=== PATIENT | female | born 1940 | race Caucasian/White ===

== ENCOUNTER 2025-02-11 11:14 | Day surgery (SDC) | payer OTHER ==
[2025-02-07 12:00] LABS: BASOPHILS % (AUTO) 0.3 % (0-1); EOSINOPHILS % (AUTO) 0.4 % (0-6); HEMATOCRIT 34.7 % (35.0-45.0); HEMOGLOBIN 11.5 g/dl (12.0-16.0); LYMPHOCYTES # (AUTO) 1.9 X10'3 (1.1-4.8); MEAN CORPUSCULAR HEMOGLOBIN 30.4 PG (27.0-31.0); MEAN CORPUSCULAR VOLUME 92.1 FL (78-98); MEAN PLATELET VOLUME 8.9 FL (7.4-10.4); MONOCYTES # (AUTO) 0.5 X10'3 (0-0.9); NEUTROPHILS # (AUTO) 8.8 X10'3 (1.8-7.7); NEUTROPHILS % (AUTO) 78.3 % (42-75); PLATELET COUNT 237 X10'3 (140-440); RED BLOOD COUNT 3.77 X10'6 (4.20-5.60); RED CELL DISTRIBUTION WIDTH 15.6 % (11.5-14.5); WHITE BLOOD COUNT 11.3 X10'3 (4.5-11.0)
[2025-02-07 12:13] LABS: APTT 28 SECONDS (22-32); PROTHROMBIN TIME 10.6 SECONDS (9.0-12.0)
[2025-02-07 12:14] LABS: ALBUMIN 3.7 G/DL (3.4-5.0); ANION GAP 8 (8-16); BLOOD UREA NITROGEN 29 MG/DL (7-18); BUN/CREATININE RATIO 33.7 (10.0-20.0); CALCIUM 9.1 MG/DL (8.5-10.1); CHLORIDE 104 MMOL/L (99-107); CHOL/HDL RATIO 1.9 (0.00-4.99); CHOLESTEROL 166 MG/DL (0-200); CREATININE 0.86 MG/DL (0.40-0.90); GLUCOSE 108 MG/DL (70-104); HDL CHOLESTEROL 86 MG/DL (35-60); LDL CHOLESTEROL 65 MG/DL (50-100); POTASSIUM 3.5 MMOL/L (3.5-5.1); SODIUM 141 MMOL/L (135-145); TOTAL CARBON DIOXIDE 29.1 MMOL/L (24-32); TRIGLYCERIDES 102 MG/DL (20-135); eGFR 63 ML/MIN
[2025-02-11] VITALS (8 sets, daily range): BP systolic 121–159; BP diastolic 51–91; PULSE 57–86; RESP 16; TEMP 97.5; O2SAT 92–97
[~2025-02-11] VITALS: Ht 162.6 cm; Wt 61.2 kg
[2025-02-11] MEDS ORDERED: LEVO100T9 PO (11:42)
[2025-02-11] MEDS ORDERED: HYDR25TA4 PO (11:43)
[2025-02-11] MEDS ORDERED: PARO20TA6 PO (11:44)
[2025-02-11] MEDS ORDERED: SIMV-45 PO (11:44)
[2025-02-11] MEDS ORDERED: IRBE300T26 PO (11:44)
[2025-02-11] MEDS ORDERED: ALBU18HF2 (11:45)
[2025-02-11] MEDS ORDERED: ASPI81TA52 PO (11:45)
[2025-02-11] MEDS ORDERED: MULT-1085 PO (11:46)
[2025-02-11] MEDS ORDERED: MELA5CAP PO (11:47)
[2025-02-11] MEDS ORDERED: CINN500C16 (11:47)
[2025-02-11] MEDS: LORazepam 0.5 MG tablet PO PRN (12:47)
[2025-02-11] MEDS: diphenhydrAMINE 25mg capsule PO PRN (12:48)
[2025-02-11] MEDS: normal saline 1,000 ML IV SCH (12:49)
[2025-02-11] MEDS ORDERED: midazolam 1 mg/ML 2ml injection ONE (13:41)
[2025-02-11] MEDS ORDERED: verapamil 2.5 mg/ml inj IV ONE (13:41)
[2025-02-11] MEDS ORDERED: iohexol 350MG/ML 100ml bottle IV ONE (13:41)
[2025-02-11] MEDS ORDERED: LIDOcaine 1% (10mg/ml) 2ml vial ONE (13:41)
[2025-02-11] MEDS ORDERED: fentaNYL/PF 50MCG/1 ML 2ML syringe ONE (13:41)
[2025-02-11] MEDS ORDERED: heparin 1,000unit/ml 10ml vial 10 ML ONE (13:41)
[2025-02-11] MEDS ORDERED: nitroGLYCERIN 500mcg/5mL D5W 5 ML IV ONE (13:42)
[2025-02-11] MEDS ORDERED: LIDOcaine 1% 30ml preserv. free vial ONE (14:35)
[2025-02-11 14:44] LABS: ISTAT HGB ART 10.5 g/dl (12.0-16.0); ISTAT Hct ART 31 %PCV (35-45); ISTAT O2 SATURATION ARTERIAL 92 % (95-98); ISTAT SOURCE ART
[2025-02-11] MEDS ORDERED: HYDROcodone/acetaminophen 5mg/325mg tablet PO PRN (15:20)
[2025-02-11] MEDS ORDERED: HYDROcodone/acetaminophen 10/325mg tab PO PRN (15:20)
[2025-02-12 06:44] LABS: ISTAT HGB MIX 10.5 g/dl (12.0-16.0); ISTAT Hct MIX 31 %PCV (35-45); ISTAT O2 SATURATION MIX VENOUS 59 % (60-80); ISTAT SOURCE BLNK
== END 2025-02-11 16:55 | disposition home or self-care (01) ==
LOC: SSTAY O 11:14
PROVIDERS: ATTEND Student in an Organized Health Care Education/Training Program
DX: I35.0 Nonrheumatic aortic (valve) stenosis (principal); I25.10 Atherosclerotic heart disease of native coronary artery without angina pectoris; I10 Essential (primary) hypertension; E78.5 Hyperlipidemia, unspecified; E03.9 Hypothyroidism, unspecified; M19.90 Unspecified osteoarthritis, unspecified site; Z79.899 Other long term (current) drug therapy; Z98.890 Other specified postprocedural states; Z79.01 Long term (current) use of anticoagulants
CPT/HCPCS: 36415; 80048; 80061; 82803; 85014; 85025; 85610; 85730; 93005; 93456; 99152; J1644; J2003; J2250; J3010; J3490; J7030; Q0163; Q9967; A6258; A6402; C1751; C1894

== ENCOUNTER 2025-04-03 06:08 | Inpatient (IN) | payer OTHER ==
[2025-03-27 14:15] LABS: BASOPHILS % (AUTO) 0.9 % (0-1); EOSINOPHILS # (AUTO) 0.2 X10'3 (0-0.9); EOSINOPHILS % (AUTO) 3.6 % (0-6); LYMPHOCYTES # (AUTO) 1.9 X10'3 (1.1-4.8); MEAN CORPUSCULAR HEMOGLOBIN 30.5 PG (27.0-31.0); MEAN CORPUSCULAR HGB CONC 33.7 g/dL (33.0-36.5); MEAN CORPUSCULAR VOLUME 90.7 FL (78-98); MEAN PLATELET VOLUME 9.1 FL (7.4-10.4); MONOCYTES # (AUTO) 0.4 X10'3 (0-0.9); MONOCYTES % (AUTO) 8.2 % (2-12); NEUTROPHILS # (AUTO) 2.3 X10'3 (1.8-7.7); NEUTROPHILS % (AUTO) 48.3 % (42-75); PRE OP HEMATOCRIT 36.5 % (35.0-45.0); PRE OP HEMOGLOBIN 12.3 g/dL (12.0-16.0); PRE OP PLATELET COUNT 215 X10'3 (140-440); PRE OP WHITE BLOOD COUNT 4.8 10'3 (4.8-10.8); RED BLOOD COUNT 4.02 X10'6 (4.20-5.60); RED CELL DISTRIBUTION WIDTH 15.2 % (11.5-14.5)
--- NOTE | 2025-03-27 14:15 | ELECTROCARDIOGRAPH REPORT ---
[facility] Test Date: 2025-03-27 Test Time: 14:12:40 Pat Name: JOSE MOSS Department: PRE/OP CARDIOLOGY Room: Gender: F Pipelines Supervisor: VARSHA : 1940 Requested By: DALLAS AKERS Order Number: [id number] Reading MD: Dr. SUSAN Carbajal Measurements Intervals [place] Rate: 59 P: 73 DE: 179 QRS: 63 QRSD: 86 T: 28 QT: 431 QTc: 427 Interpretive Statements Sinus bradycardia Anteroseptal infarct, old Electronically Signed On 03-27-2025 17:13:[address] SUSAN Carbajal Please click the below link to view image of tracing.
[2025-03-27 14:27] LABS: BILIRUBIN,URINE NEGATIVE (Neg); CLARITY,URINE CLEAR (Clear); COLOR,URINE YELLOW (Yellow); GLUCOSE, URINE NEGATIVE (Neg); KETONES,URINE NEGATIVE (Neg); LEUKOCYTE ESTERASE ,URINE NEGATIVE (Neg); NITRITES, URINE NEGATIVE (Neg); OCCULT BLOOD,URINE TRACE-INTACT (Neg); PROTEIN,URINE NEGATIVE (Neg); UROBILINOGEN,URINE 0.2 E.U/dL (0.2-1.0)
[2025-03-27 14:36] LABS: UA COLLECTION TYPE CLN CATCH MIDSTREAM
[2025-03-27 14:37] LABS: PRE OP PROTIME 10.4 SECONDS (9.0-12.0)
[2025-03-27 14:39] LABS: SQUAMOUS EPITHELIAL CELL,UR NONE SEEN /LPF (FEW)
[2025-03-27 14:40] LABS: RBC,URINE 0-2 /HPF (0-2); WBC,URINE 0-4 /HPF (0-4)
[2025-03-27 14:41] LABS: BACTERIA,URINE 1+ /HPF (Neg)
[2025-03-27 14:47] LABS: ALBUMIN 3.8 G/DL (3.4-5.0); ALBUMIN/GLOBULIN RATIO 1.2 (1.1-1.5); ALKALINE PHOSPHATASE 84 IU/L (46-116); BLOOD UREA NITROGEN 22 MG/DL (7-18); BUN/CREATININE RATIO 32.4 (10.0-20.0); CALCIUM 9.1 MG/DL (8.5-10.1); CHLORIDE 105 MMOL/L (99-107); CREATININE 0.68 MG/DL (0.40-0.90); PRE OP ALT 27 U/L (30-65); PRE OP ANION GAP 5 (8-16); PRE OP AST 24 U/L (10-37); PRE OP BILIRUB, TOTAL 0.5 MG/DL (0.0-1.0); PRE OP GLUCOSE 93 MG/DL (70-104); PRE OP POTASSIUM 4.4 MMOL/L (3.4-5.1); PRE OP SODIUM 138 MMOL/L (135-145); PRO BRAIN NATRIURETIC PEPTIDE 313 PG/ML (0-450); TOTAL CARBON DIOXIDE 28.2 MMOL/L (24-32); eGFR 82 ML/MIN
--- NOTE | 2025-03-27 15:38 | RADIOLOGY REPORT ---
DI CHEST,TWO VIEWS CLINICAL HISTORY: PREOP/pain COMPARISON: DI CHEST,TWO VIEWS on DOS: 02/13/25 TECHNIQUE: Frontal and lateral view of the chest was obtained FINDINGS: Lines and Tubes: None Lungs: No focal consolidation. Pleura: No effusion. No pneumothorax. Cardiomediastinal contours: Unremarkable Bones: No acute osseous abnormality. IMPRESSION: No acute cardiopulmonary disease.
[2025-04-03] VITALS (34 sets, daily range): BP systolic 100–165; BP diastolic 57–92; PULSE 56–91; RESP 10–22; TEMP 96–98.5; O2SAT 92–100
[~2025-04-03] VITALS: Ht 162.6 cm; Wt 61.2 kg
[2025-04-03] MEDS: phenylephrine inj 50 MG in normal saline 250ml IV solN IV SCH (05:30)
[2025-04-03] MEDS: nitroPRUSSIDE (NIPRIDE) (200MCG/ML) 100ML Drip IV SCH (05:30)
[~2025-04-03 06:08] MED LIST: ACET-1025 PO; ALBU18HF2 INH; ASPI81TA52 PO; GLUC1CAP36 PO; HYDR25TA4 PO; IRBE300T26 PO; LEVO100T9 PO; MELA5CAP PO; MULT-1085 PO; NITR0.4T51 SL; PARO20TA6 PO; SIMV-45 PO; ondansetron/PF 4mg/2ml inj IV PRN
[2025-04-03] MEDS: ceFAZolin 2gm/dext,iso 50mL 50 ML IV ONE (06:27)
[2025-04-03] MEDS: vancomycin/NS 1 GM ADD-VANTAGE 250 ML IV ONE (06:27)
[2025-04-03] MEDS: aspirin 325mg tablet PO ONE (06:31)
[2025-04-03] MEDS: famotidine 20mg tablet PO ONE (06:32)
[2025-04-03] MEDS ORDERED: morphine 4 MG/ML inj SYRINge IV PRN (07:10)
[2025-04-03] MEDS ORDERED: hydrALAZINE 20mg/ml inj. IV PRN ×2 (07:10→09:40)
[2025-04-03] MEDS ORDERED: ondansetron/PF 4mg/2ml inj IV PRN ×2 (07:10→09:40)
[2025-04-03] MEDS ORDERED: labetalol 20mg/4ml (5mg/ml) syringe IV PRN ×2 (07:10→09:40)
[2025-04-03] MEDS ORDERED: morphine 2 MG/ML inj. syringe IV PRN (07:10)
[2025-04-03] MEDS ORDERED: fentaNYL/PF 50MCG/1 ML 2ML syringe IV PRN ×2 (07:10)
[2025-04-03] MEDS: albuterol 2.5 MG/3 ML nebule NEB ONE (07:11)
[2025-04-03] MEDS ORDERED: nitroGLYCERIN 0.4mg SUBLingual tab SL PRN (08:05)
[2025-04-03] MEDS ORDERED: non-formulary drug (Acetaminophen (Tylenol Extra Strength) 2 TAB) PO PRN (08:05)
[2025-04-03] MEDS ORDERED: albuterol 2.5 MG/3 ML nebule NEB PRN (08:05)
[2025-04-03] MEDS ORDERED: protamine sulfate 10mg/ml inj. ONE (08:09)
[2025-04-03] MEDS ORDERED: iohexol 350MG/ML 100ml bottle IV ONE (08:11)
[2025-04-03] MEDS ORDERED: heparin 1,000 UNITS/NS 500ml 1,500 ML ONE (08:11)
[2025-04-03] MEDS ORDERED: LIDOcaine 1% 30ml preserv. free vial ONE (08:11)
[2025-04-03] MEDS ORDERED: propofol 10mg/ml 20ml vial IV ONE (08:31)
[2025-04-03] MEDS ORDERED: midazolam 1 mg/ML 2ml injection ONE (08:36)
[2025-04-03] MEDS ORDERED: fentaNYL/PF 50MCG/1 ML 2ML syringe ONE (08:36)
[2025-04-03] MEDS ORDERED: heparin 1,000unit/ml 10ml vial 10 ML ONE (09:10)
[2025-04-03] MEDS ORDERED: pantoprazole 40mg Tablet.DR PO PRN (09:40)
[2025-04-03] MEDS ORDERED: magnesium sulf-water 2g/50mL 50 ML IV PRN (09:40)
[2025-04-03] MEDS ORDERED: potassium CL 10mEq/100ml bag 100 ML IV PRN (09:40)
[2025-04-03] MEDS ORDERED: potassium Cl 40MEQ/270ML bag 250 ML IV PRN (09:40)
[2025-04-03] MEDS ORDERED: diphenhydrAMINE 25mg capsule PO PRN (09:40)
[2025-04-03] MEDS ORDERED: potassium Cl 40MEQ/1/2NS 520ml 520 ML IV PRN (09:40)
[2025-04-03] MEDS: normal saline 1000ml 1,000 ML IV SCH (09:40)
[2025-04-03] MEDS ORDERED: proCHLORperazine 10 MG/2 ml inj IV PRN (09:40)
[2025-04-03] MEDS ORDERED: acetaminophen 325mg tablet PO PRN (09:40)
[2025-04-03] MEDS ORDERED: ALPRAZolam 0.25mg tablet PO PRN (09:40)
[2025-04-03] MEDS ORDERED: potassium Cl 20 mEq SR tablet PO PRN (09:40)
[2025-04-03] MEDS ORDERED: magnesium sulf-water 4G/100mL 100 ML IV PRN (09:40)
[2025-04-03] MEDS ORDERED: potassium Cl 20mEq/100mL bag 100 ML IV PRN (09:40)
[2025-04-03] MEDS ORDERED: docusate sod 100mg capsule PO PRN (09:40)
--- NOTE | 2025-04-03 09:45 | OPERATIVE REPORT ---
Operative Report Providers to CC CC: YESICA ASHTON MD ~ Date of Procedure: April 03, 2025 Pre-Operative Diagnosis: -Status Post TAVR Post-Operative Diagnosis SAME as PRE-Op Procedure Performed 1. Ultrasound-guided access, bilateral femoral vessels. 2. Bilateral femoral angiography. 3. Ascending aortography 4. Temporary transvenous pacer to the RV apex. 5. Placement of a 23 mm Coon S3 Resilia valve. Surgeon: Conor Ashton MD Marketing Researcher MD Dr. Flip Fuentes MD Anesthesiologist: Az Lazo Type of Anesthesia: Other Findings: Severe Aortic Stenosis Complications None Prosthetics\Implants used: Coon 23mm S3 resilia Estimated Blood Loss: Minimal Specimen Removed: None Description of Procedure: The patient was brought to the crown and bridge dental lab technician in a fasting state. They underwent MAC anesthesia. Ultrasound was used to guide access to the bilateral femoral ve ssels, 7-Slovenian sheath, left femoral artery, 6-Slovenian sheath, right femoral artery and left femoral vein. Bilateral femoral angiograms were obtained. Heparin was given to maintain an ACT over 250 seconds. A single Perclose was placed on the right. We upsized to an 8-Slovenian sheath. Two pigtail catheters placed in the ascending aorta. Ascending aortography done to determine the angle of deployment. Temporary transvenous pacer to the RV apex and confirmed capture. We upsized an 8-Slovenian sheath to a 14-Slovenian Coon eSheath on the right. We crossed the aortic valve using a straight stiff exchange length Terumo wire supported by a 6-Slovenian AL1 catheter. LV AO pressures were recorded. A Kontagent extra support wire was placed in the left ventricle. A 23 mm Coon S3 Resilia valve was brought to position and under rapid right ventricular pacing was deployed. Post-procedure, there was trivial AI and no residual . Guidewires and balloons were removed at this time. The temporary pacer was removed. The 14-Slovenian Coon eSheath was removed and the Perclose tied with adequate hemostasis. The arterial sheath on the left was removed and a single Perclose tied. The venous sheath on the left was removed and a single Angioseal used for hemostasis. Protamine was given to reverse the effects of heparin. The patient was stable post-procedure. Good pulses in the legs and no evidence of bleeding, transferred to the PACU in stable condition. HEMODYNAMICS: Pre: LV: 193/14 mmHg LVEDP: 26mmHg Ao: 161/71, MAP 110mmHg Post: LV: 134/8 mmHg LVEDP: 21 mmHg Ao: 131/52, MAP 87mmHg RESULTS: 1. Successful placement of a 23 mm Coon S3 Resilia valve, right transfemoral approach, single perclose. ASA 81mg QD 2. Hyperlipidemia: Resume home meds 3. Hypertension: Resume if blood pressure remains stable 4. Chronic Diastolic heart failure, LVEDP 26mmHg, pBNP < 450 Patient will be watched in the recovery area until stable, then transferred to telemetry at that time. CONOR ASHTON MD April 03, 2025 09:45
[2025-04-03] MEDS ORDERED: LIDOcaine 1% W/epiNEPHrine 1:100,000 20ml vial ONE (09:53)
--- NOTE | 2025-04-03 10:09 | ELECTROCARDIOGRAPH REPORT ---
[facility] Test Date: 2025-04-03 Test Time: 10:05:44 Pat Name: JOSE MOSS Department: [facility] IN Patient ID: [facility]-[id number] Room: [place] [id number] Gender: F Electric Meter Tester Helper: ROSEANN : 1940 Requested By: CONOR FRANCISCO Order Number: [id number] Reading MD: Dr. SUSAN Carbajal Measurements Intervals [place] Rate: 58 P: 75 SC: 197 QRS: 73 QRSD: 76 T: 56 QT: 429 QTc: 422 Interpretive Statements Sinus bradycardia Probable anteroseptal infarct, old Electronically Signed On 04-03-2025 17:23:[address] SUSAN Carbajal Please click the below link to view image of tracing.
[2025-04-03] MEDS: ringers solution, lacted 1,000 ML IV SCH ×2 (10:10→10:17)
--- NOTE | 2025-04-03 13:19 | ELECTROCARDIOGRAPH REPORT ---
[facility] Test Date: 2025-04-03 Test Time: 13:18:10 Pat Name: JOSE MOSS Department: [facility] IN Patient ID: [facility]-[id number] Room: [place] [address] Gender: F Support Merchandiser: ROSEANN : 1940 Requested By: DALLAS AKERS Order Number: [id number] Reading MD: Dr. SUSAN Carbajal Measurements Intervals [place] Rate: 61 P: 79 HI: 187 QRS: 74 QRSD: 96 T: 57 QT: 435 QTc: 439 Interpretive Statements Sinus rhythm Probable anteroseptal infarct, old Electronically Signed On 04-03-2025 17:24:[address] SUSAN Carbajal Please click the below link to view image of tracing.
--- NOTE | 2025-04-03 14:47 | CARDIOLOGY REPORT ---
APPROVED REPORT EXAM: Focused, limited intraprocedural transthoracic 2D, spectral and color flow Doppler echocardiogr am during TAVR deployment. Patient Location: CARDIAC WAREHOUSE SUPERVISOR Blood Pressure: 130 / 78 mmHg Heart Rate: 68 bpm Rhythm: SINUS with frequent PVC's Indications SEVERE AORTIC STENOSIS 23mm Coon Bharat 3 Ultra RESILIA Bioprosthetic TAVR COPD HYPERTENSION Recovery Engineer: MD NATHAN , MD / Interventionalist: Roxanne Ashton MD and Breanna Sorenson MD. / Surgeon: Breanna ORTIZ MD / Device rep: Austin MARX ELS Previous echo: 11/25/24 CVC UNK EF: 68%; JEANNA 0.91; PKV: 4.40; GRAD: 75/42; LVOT: 2.05; VHD: trMR; trT R LEFT VENTRICLE Normal LV size and function. Mild concentric hypertrophy. LVEF is 65%. RIGHT VENTRICLE RV is normal size and function. ATRIA Left atrium is mildly dilated. AORTIC VALVE Trileaflet AV appears heavily calcified with significant stenosis demonstrated by reduced excursion a nd increased transvalvular and ascending aorta turbulance. No insufficiency. POST DEPLOYMENT (LOOP: 4 5): 23 mm Coon Bharat 3 Ultra Resilia bioprosthetic TAVR appears well seated with normal function. Trivial paravalvular leak present at 1, 4 o'clock in SUBCOSTAL SAX BASE. JEANNA is measured at 2.58 cms q. Peak / mean gradients of 26 / 11 mmHG. Peak velocity is measured at 2.58 m/sec. MITRAL VALVE Moderate MV annular calcification with leaflet thickening without stenosis. Trace regurgitation. TRICUSPID VALVE TV appears structurally normal with mild regurgitation. PERICARDIUM Normal pericardium. No effusion.
[2025-04-03] MEDS ORDERED: sod chloride 0.9% 10ml flush syringe IV SCH (16:00)
[2025-04-03] MEDS: ceFAZolin 1GM/D5W- ADD-VANTAGE 50 ML IV SCH (16:23)
[2025-04-03] MEDS: vancomycin/NS 1 GM ADD-VANTAGE 250 ML IV SCH (19:56)
[2025-04-03] MEDS: Melatonin 3mg tablet PO SCH (19:56)
[2025-04-04] VITALS (8 sets, daily range): BP systolic 115–149; BP diastolic 46–72; PULSE 67–80; RESP 17–23; TEMP 97.5–98; O2SAT 92–95
--- NOTE | 2025-04-04 06:46 | RADIOLOGY REPORT ---
EXAM: DI CHEST,SINGLE VIEW HISTORY: s/p TAVR COMPARISON: Chest x-ray dated 03/27/2025 TECHNIQUE: Portable upright AP view of the chest was performed. FINDINGS: No pneumothorax, consolidative infiltrates, or pulmonary edema. The heart is not enlarged. There are postoperative changes of TAVR. There are degenerative changes of the thoracic spine and bilateral jordan ulders. IMPRESSION: 1. No acute intrathoracic process. 2. Postoperative changes of TAVR.
--- NOTE | 2025-04-04 06:55 | ELECTROCARDIOGRAPH REPORT ---
[facility] Test Date: 2025-04-04 Test Time: 06:52:17 Pat Name: JOSE MOSS Department: [facility] 3S Room: [place] [address] B Gender: F Creping Machine Operator: ROSEANN : 1940 Requested By: CONOR FRANCISCO Order Number: [id number] Reading MD: Dr. SUSAN Carbajal Measurements Intervals [place] Rate: 68 P: 64 IN: 192 QRS: 65 QRSD: 91 T: 51 QT: 409 QTc: 436 Interpretive Statements Sinus rhythm Electronically Signed On 04-04-2025 19:49:[address] SUSAN Carbajal Please click the below link to view image of tracing.
[2025-04-04 07:03] LABS: BASOPHILS % (AUTO) 0.4 % (0-1); EOSINOPHILS # (AUTO) 0.2 X10'3 (0-0.9); HEMATOCRIT 31.9 % (35.0-45.0); HEMOGLOBIN 10.9 g/dl (12.0-16.0); LYMPHOCYTES # (AUTO) 1.8 X10'3 (1.1-4.8); LYMPHOCYTES % (AUTO) 22.3 % (21-51); MEAN CORPUSCULAR HEMOGLOBIN 30.8 PG (27.0-31.0); MEAN CORPUSCULAR HGB CONC 34.1 g/dL (33.0-36.5); MEAN CORPUSCULAR VOLUME 90.2 FL (78-98); MEAN PLATELET VOLUME 9.9 FL (7.4-10.4); MONOCYTES # (AUTO) 0.7 X10'3 (0-0.9); MONOCYTES % (AUTO) 9.4 % (2-12); NEUTROPHILS # (AUTO) 5.2 X10'3 (1.8-7.7); NEUTROPHILS % (AUTO) 65.9 % (42-75); PLATELET COUNT 134 X10'3 (140-440); RED BLOOD COUNT 3.54 X10'6 (4.20-5.60); RED CELL DISTRIBUTION WIDTH 14.9 % (11.5-14.5); WHITE BLOOD COUNT 7.9 X10'3 (4.5-11.0)
[2025-04-04 07:19] LABS: ALANINE AMINOTRANSFERASE 19 U/L (12-78); ALBUMIN 3.1 G/DL (3.4-5.0); ALBUMIN/GLOBULIN RATIO 1.1 (1.1-1.5); ALKALINE PHOSPHATASE 77 IU/L (46-116); ANION GAP 10 (8-16); ASPARTATE AMINO TRANSFERASE 30 U/L (10-37); BILIRUBIN,TOTAL 0.4 MG/DL (0.1-1.0); BLOOD UREA NITROGEN 15 MG/DL (7-18); BUN/CREATININE RATIO 24.6 (10.0-20.0); CALCIUM 8.4 MG/DL (8.5-10.1); CHLORIDE 106 MMOL/L (99-107); CREATININE 0.61 MG/DL (0.40-0.90); GLUCOSE 106 MG/DL (70-104); MAGNESIUM 1.7 MG/DL (1.5-2.4); POTASSIUM 4.1 MMOL/L (3.5-5.1); PRO BRAIN NATRIURETIC PEPTIDE 541 PG/ML (0-450); SODIUM 141 MMOL/L (135-145); eCRCL 57 ML/MIN; eGFR > 90 ML/MIN
[2025-04-04] MEDS ORDERED: aspirin 81mg, enteric-coated 1 TAB TABLET.DR PO SCH (08:00)
[2025-04-04] MEDS ORDERED: [UNRECOGNIZED DRUG - OTHER] PO SCH (08:00)
[2025-04-04] MEDS: levoTHYROXINE 100mcg tablet PO SCH (08:35)
[2025-04-04] MEDS: HYDROchlorothiazide 25mg tablet PO SCH (08:36)
[2025-04-04] MEDS: HYDROcodone/acetaminophen 5mg/325mg tablet PO PRN (08:36)
[2025-04-04] MEDS: losartan 50mg tablet PO SCH (08:36)
[2025-04-04] MEDS: aspirin 81mg tab.chew PO SCH (08:37)
[2025-04-04] MEDS: multivitamins, therapeutics tablet PO SCH (08:37)
[2025-04-04] MEDS: simvastatin 20mg tablet PO SCH (08:37)
[2025-04-04] MEDS: PARoxetine 20mg tablet PO SCH (09:09)
--- NOTE | 2025-04-04 10:20 | DISCHARGE SUMMARY ---
Discharge Summary Providers to CC CC: YESICA FRANCISCO MD ~ Discharge Summary Admission Diagnosis: -Status Post TAVR Hospital Course DATE OF ADMISSION: 04/03/2025 DATE OF DISCHARGE: 04/04/2025 Discharge Diagnosis\Comment: Severe Aortic Stenosis status post transcatheter aortic valve replacement Operations\Procedures: 1. Ultrasound-guided access, bilateral femoral vessels. 2. Bilateral femoral angiography. 3. Ascending aortography 4. Temporary transvenous pacer to the RV apex. 5. Placement of a 23 mm Coon S3 Resilia valve. Consultants: None Complications: None Condition on DC: Stable Continued Medications: Acetaminophen (Tylenol Extra Strength) 500 Mg Tablet 2 TAB PO Q6H PRN PRN for pain or fever Albuterol Sulfate (Ventolin Hfa) 90 Mcg Hfa.aer.ad 1-2 PUFF INH Q6H PRN for SOB or wheezing Aspirin (Aspirin EC) 81 Mg Tablet.dr 1 TAB PO DAILY for 30 Days, #30 TAB Glucosa Suazo 2KCL/Chondroitin Sauzo (Glucosamine & Chondroitin Cap) 500 Mg-400 Mg Capsule 3 EACH PO DAILY, CAP Hydrochlorothiazide (Hydrochlorothiazide) 25 Mg Tablet 1 TAB PO DAILY Irbesartan (Irbesartan) 300 Mg Tablet 1 TAB PO DAILY Levothyroxine Sodium (Levothyroxine Sodium) 100 Mcg Tablet 1 TAB PO DAILY Melatonin (Melatonin) 5 Mg Capsule 1 CAP PO HS for sleep for 30 Days, #30 CAP 0 Refills Multivitamin (Multi Vitamin Daily) 1 Each Tablet 1 TAB PO DAILY for 30 Days, #30 TAB 0 Refills Nitroglycerin SL* (Nitrostat SL*) 0.4 Mg Tablet 1 TAB SL Q5MIN PRN for Chest pain Q5min PRNx3-call Paroxetine HCl (Paroxetine HCl) 20 Mg Tablet 1 TAB PO DAILY Simvastatin (Simvastatin) 40 Mg Tablet 1 TAB PO DAILY Discharge Summary: 84yo woman with HTN, HLD, Severe symptomatic aortic stenosis admitted after elective TAVR. Underwent TF-TAVR with 23mm Coon S3 Resilia. Did well overnight without issues. --Cont ASA 81mg QD --Educated on endocarditis PPx *Problems/Diagnosis: (1) Aortic stenosis Total Time Spent on D/C: Up to 30 Minutes Counseling Services Smoking & Tobacco Cessation: N/A CONOR FRANCISCO MD April 04, 2025 10:20
--- NOTE | 2025-04-04 11:19 | CARDIOLOGY REPORT ---
APPROVED REPORT EXAM: Limited 2D, Doppler, and color-flow Echocardiogram. Patient Location: [address] Blood Pressure: 138/72 mmHg Heart Rate: 82 bpm Rhythm: SINUS Indications ONE DAY FOLLOW-UP TAVR 23 mm Coon Bharat 3 Ultra RESILIA Bioprosthetic TAVR Lead Housekeeper: Roxanne Ashton MD Previous echo 04/03/25 [facility] EF 65%; JEANNA 2.58 cmsq; Peak v 2.58 m/s; Grad 26 / 11 mmHg; trivial PVL at 1, 4 o'clock SUBCOSTAL SAX BASE; trMR, mTR 2D Dimensions IVSd 1.2 (0.7-1.1cm) LVDd 4.2 cm PWd 1.2 (0.7-1.1cm) IVSs 1.2 (0.8-1.2cm) LVDs 2.1 (2.5-4.0cm) PWs 1.4 (0.8-1.2cm) LVOT Diameter 2.30 (1.8-2.4cm) LVEF(%) 70.0 (>50%) FS (%) 38.6 % SV 33.8 ml CO 2.7 L/min Aortic Valve AoV Peak Gennaro. 274.9 cm/s AoV VTI 47.0 cm AO Peak GR. 30.2 mmHg AO Mean GR. 14 mmHg LVOT VTI 29.46 cm LVOT Peak Gennaro. 139.6 cm/s JEANNA(VTI)/BSA 2.59 cm2/m2 JEANNA (VTI) 2.59 cm2 Tricuspid Valve TR P. Velocity 300 cm/s RAP ESTIMATE 10 mmHg TR Peak Gr. 36 mmHg RVSP 46 mmHg LEFT VENTRICLE Normal LV size and hyperdynamic function. Mild concentric hypertrophy. LVEF is 70-75%. RIGHT VENTRICLE RV size and function appear normal. RVSP is estimated at 46 mmHg. AORTIC VALVE 23 mm Coon Bharat 3 Ultra RESILIA Bioprosthetic TAVR appears well seated with trace perivalvular l eak at 1 o'clock SAX TTE, multiple PVLs visualized better in AP5CH and at 1, 4 o'clock SUBCOSTAL SAX BASE. JEANNA is measured at 2.59 cmsq. Peak / mean gradients of 30 / 14 mmHG. Peak velocity is measured at 2.74 cm/sec. MITRAL VALVE Moderate MV annular calcification without stenosis. Trace regurgitation. TRICUSPID VALVE TV appears structurally normal with mild regurgitation. PERICARDIUM Normal pericardium. No effusion. Other Information Study Quality: Adequate Conclusion Normal LV size and hyperdynamic function. Mild concentric hypertrophy. LVEF is 70-75%. RV size and function appear normal. RVSP is estimated at 46 mmHg. 23 mm Coon Bharat 3 Ultra RESILIA Bioprosthetic TAVR appears well seated with trace perivalvular l eak at 1 o'clock SAX TTE, multiple PVLs visualized better in AP5CH and at 1, 4 o'clock SUBCOSTAL SAX BASE. JEANNA is measured at 2.59 cmsq. Peak / mean gradients of 30 / 14 mmHG. Peak velocity is measur ed at 2.74 cm/sec. Moderate MV annular calcification without stenosis. Trace regurgitation. TV appears structurally normal with mild regurgitation. Normal pericardium. No effusion.
== END 2025-04-04 17:26 | disposition home or self-care (01) | DRG 266 ==
LOC: PAS IN 06:08 → PCU 3S 13:58
PROVIDERS: ADMIT Internal Medicine Cardiovascular Disease; ATTEND Internal Medicine Cardiovascular Disease
PROC: B41D1ZZ Fluoroscopy of Aorta and Bilateral Lower Extremity Arteries using Low Osmolar Contrast (ICD-10-PCS; 2025-04-03)
PROC: 02RF38Z Replacement of Aortic Valve with Zooplastic Tissue, Percutaneous Approach (ICD-10-PCS; principal; 2025-04-03 08:31)
DX: I35.0 Nonrheumatic aortic (valve) stenosis (principal); Z00.6 Encounter for examination for normal comparison and control in clinical research program; I50.31 Acute diastolic (congestive) heart failure; I11.0 Hypertensive heart disease with heart failure; E78.5 Hyperlipidemia, unspecified
CPT/HCPCS: 33361; 36415; 71045; 71046; 76937; 80053; 81001; 82948; 83735; 83880; 84443; 85025; 85347; 85610; 85730; 86885; 86900; 86901; 86920; 87081; 93005; 93308; A4618; A6258; A6449; C1756; C1760; C1769; C1894; G0378; J0690; J1644; J2003; J2250; J2371; J2704; J2720; J3010; J3370; J3490; J7030; J7040; J7050; J7120; Q9967